=== PATIENT | female | born 1985 | race Caucasian/White ===

== ENCOUNTER 2022-01-03 21:40 | Emergency (ER) | payer OTHER ==
[~2022-01-03] VITALS: Ht 154.9 cm; Wt 74.8 kg
[2022-01-03] MEDS ORDERED: CELEXA 20 MG TA20 MG PO (21:52)
[2022-01-03] MEDS ORDERED: FLEXERIL PO (23:44)
[2022-01-03 23:50] VITALS: BP 129/77
== END 2022-01-03 23:50 | disposition home or self-care (01) ==
LOC: M.ERS 21:40
DX: S00.03XA Contusion of scalp, initial encounter (principal); S59.901A Unspecified injury of right elbow, initial encounter; M62.838 Other muscle spasm; F41.9 Anxiety disorder, unspecified; F32.9 Major depressive disorder, single episode, unspecified; Z79.899 Other long term (current) drug therapy; Z88.5 Allergy status to narcotic agent; Z88.0 Allergy status to penicillin; Z88.6 Allergy status to analgesic agent; W19.XXXA Unspecified fall, initial encounter; Y93.89 Activity, other specified; Y92.89 Other specified places as the place of occurrence of the external cause; Y99.8 Other external cause status